=== PATIENT | male | born 1970 | race Caucasian/White ===

== ENCOUNTER → 2020-04-14 13:03 | Outpatient (CLI) | payer OTHER, SELFPAY ==
[2020-04-15 15:14] LABS: Covid-19 Nasal PCR Sendout Lex Not Detected
== END ==
PROVIDERS: PCP Nurse Practitioner; Visit Provider Nurse Practitioner
DX: Z03.818 Encounter for observation for suspected exposure to other biological agents ruled out (principal)
CPT/HCPCS: U0004

== ENCOUNTER → 2021-06-11 13:00 | Outpatient (CLI) | payer OTHER, SELFPAY ==
--- NOTE | 2021-06-11 13:13 | XR_ITS ---
PROCEDURE: XR KNEE RT 3V CLINICAL INDICATION: RT KNEE PAIN COMPARISON: No exams were available for comparison FINDINGS: No fracture or dislocation. No lytic or blastic change. There is normal mineralization. There are mild osteoarthritic changes involving all 3 compartments. Other findings:None. IMPRESSION: Mild osteoarthritic changes involving all 3 compartments. Dictated by: Joseph Kerr MD 06/11/2021 15:08 Joseph Kerr MD in [facility] 06/11/2021 15:08
== END ==
PROVIDERS: PCP Nurse Practitioner; Visit Provider Nurse Practitioner
DX: M25.561 Pain in right knee (principal)
CPT/HCPCS: 73562

== ENCOUNTER 2021-07-03 09:48 | Outpatient (CLI) | payer OTHER, SELFPAY ==
[2021-07-03] VITALS (10 sets, daily range): BP systolic 99–129; BP diastolic 66–87; PULSE 78–95; RESP 22; TEMP 37.5–37.7; O2SAT 93–96
== END 2021-07-03 13:23 | disposition home or self-care (01) ==
LOC: INF 09:49
PROVIDERS: PCP Internal Medicine Adolescent Medicine; Visit Provider Internal Medicine Adolescent Medicine
DX: U07.1 COVID-19 (principal); Z23 Encounter for immunization
CPT/HCPCS: 96365

== ENCOUNTER 2022-03-18 16:00 | Outpatient (RCR) | payer OTHER, SELFPAY | END 2022-04-18 08:05 | disposition home or self-care (01) | LOC: PT.CARL 16:00 | PROVIDERS: PCP Internal Medicine Adolescent Medicine; Visit Provider Orthopaedic Surgery | DX: M25.561 Pain in right knee (principal) | CPT/HCPCS: 97010; 97014; 97033; 97110; 97163; G0283 ==